=== PATIENT | male | born 1950 | race American Indian/Alaskan Native ===

== ENCOUNTER 2020-01-23 15:26 | Emergency (ER) | payer MEDICARE ==
[2020-01-23] MEDS ORDERED: LORazepam 1 MG TAB PO ONE (20:15)
--- NOTE | 2020-01-23 20:44 | XRay Report ---
CHEST 2 VIEWS INDICATION / CLINICAL INFORMATION: Weakness, trouble sleeping, flank pain. COMPARISON: None available. FINDINGS: SUPPORT DEVICES: None. HEART / MEDIASTINUM: No significant abnormality. LUNGS / PLEURA: No significant pulmonary or pleural abnormality. .No pneumothorax. ADDITIONAL FINDINGS: No significant additional findings. IMPRESSION: 1. No acute findings. Signer Name: Luis Enrique Ness MD Signed: 01/23/2020 8:39 PM Workstation Name: [id number]
[2020-01-23 20:53] LABS: Alanine Aminotransferase 42 units/L (7-56); Albumin 3.5 g/dL (3.9-5); Blood Urea Nitrogen 9 mg/dL (9-20); Hemolysis Index 11
[2020-01-23 20:54] LABS: Basophils % (Auto) 0.6 % (0.0-1.8); Eosinophils % (Auto) 0.8 % (0.0-4.3); Hematocrit 37.4 % (35.5-45.6); Hemoglobin 12.2 gm/dl (11.8-15.2); Lymphocytes # (Auto) 2.2 K/mm3 (1.2-5.4); Lymphocytes % (Auto) 38.9 % (13.4-35.0); Mean Corpuscular HGB Conc 33 % (32-34); Mean Corpuscular Volume 90 fl (84-94); Monocytes # (Auto) 0.8 K/mm3 (0.0-0.8); Monocytes % (Auto) 13.5 % (0.0-7.3); Platelet Count 218 K/mm3 (140-440); Red Blood Count 4.18 M/mm3 (3.65-5.03); Red Cell Distribution Width 15.7 % (13.2-15.2)
[2020-01-23 20:57] LABS: BUN/Creatinine Ratio 13
[2020-01-23] MEDS ORDERED: SODIUM CHLORIDE 0.9% 500 ML 500 ML IV ONE (21:09)
--- NOTE | 2020-01-23 21:16 | Emergency Department Report ---
ED General Adult HPI - General Chief complaint: Medical Clearance Stated complaint: NOT SLEEPING/BODY PAIN Time Seen by Provider: 01/23/20 20:03 Source: patient Mode of arrival: Ambulatory Limitations: No Limitations - History of Present Illness Initial comments: PT is a =69 y/o aam who presents for complaint of generalized bodyaches and insomnia, pt is currently being treated at [facility] for Dx. Hx ETOH Dependence, pt advises last etoh intake was 2 weeks ago. denies with drawals, is currently inpatient at [facility]. Pt denies tremor, no cp, no sob, no dizziness, no lighteheadedness , no n/v, no diaphoresis. [facility], is a/o x3 ambulatory with steady gait and nad. Onset/Timin -: week(s) Radiation: other (generalized bodyaches) Severity scale (0 -10): 3 Quality: aching Consistency: intermittent Improves with: none Worsens with: none Associated Symptoms: denies: confusion, chest pain, cough, diaphoresis, fever/chills, nausea/vomiting, shortness of breath, weakness Treatments Prior to Arrival: none - Related Data Allergies Allergy/AdvReac Type Severity Reaction Status Date / Time No Known Allergies Allergy Unverified 01/23/20 16:36 ED Review of Systems ROS: Stated complaint: NOT SLEEPING/BODY PAIN Other details as noted in HPI Constitutional: denies: chills, fever Eyes: as per HPI ENT: denies: ear pain, throat pain Respiratory: denies: cough, shortness of breath, wheezing Cardiovascular: denies: chest pain, palpitations Endocrine: no symptoms reported Gastrointestinal: denies: abdominal pain, nausea, diarrhea Genitourinary: denies: urgency, dysuria Musculoskeletal: arthralgia. denies: back pain, joint swelling Skin: denies: rash, lesions Neurological: denies: headache, weakness, paresthesias Psychiatric: denies: anxiety, depression Hematological/Lymphatic: denies: easy bleeding, easy bruising ED Past Medical Hx - Past Medical History Previous Medical History?: No - Surgical History Past Surgical History?: No ED Physical Exam - General Limitations: No Limitations General appearance: alert, in no apparent distress - Head Head exam: Present: atraumatic, normocephalic - Eye Eye exam: Present: normal appearance, PERRL, EOMI. Absent: nystagmus Pupils: Present: normal accommodation - ENT ENT exam: Present: mucous membranes moist - Neck Neck exam: Present: normal inspection, full ROM. Absent: tenderness, thyromegaly - Respiratory Respiratory exam: Present: normal lung sounds bilaterally. Absent: respiratory distress, wheezes, stridor, chest wall tenderness - Cardiovascular Cardiovascular Exam: Present: regular rate, normal rhythm, normal heart sounds. Absent: systolic murmur, diastolic murmur, rubs, gallop - GI/Abdominal GI/Abdominal exam: Present: soft, normal bowel sounds. Absent: distended, tenderness, guarding, rebound, rigid, organomegaly, bruit, hernia - Rectal Rectal exam: Present: deferred - Extremities Exam Extremities exam: Present: normal inspection, full ROM. Absent: tenderness, pedal edema - Back Exam Back exam: Present: normal inspection, full ROM. Absent: tenderness, CVA tenderness (R), CVA tenderness (L), vertebral tenderness, rash noted - Neurological Exam Neurological exam: Present: alert, oriented X3, CN II-XII intact, normal gait, reflexes normal. Absent: motor sensory deficit - Expanded Neurological Exam Expanded Patient oriented to: Present: person, place, time Speech: Present: fluid speech Motor strength exam: RUE: 5, LUE: 5, RLE: 5, LLE: 5 DTR: bicep (R): 2+, bicep (L): 2+, knee (R): 2+, knee (L): 2+ Best Eye Response ([place]): (4) open spontaneously Best Motor Response ([place]): (6) obeys commands Best Verbal Response ([place]): (5) oriented [place] Total: 15 - Psychiatric Psychiatric exam: Present: anxious. Absent: homicidal ideation, suicidal i deation - Skin Skin exam: Present: warm, dry, intact, normal color. Absent: rash ED Course Vital Signs 01/23/20 01/23/20 16:37 20:35 Temperature 98.8 F 99 F Pulse Rate 83 92 H Respiratory 18 18 Rate Blood Pressure 175/101 170/88 [Right] O2 Sat by Pulse 98 98 Oximetry ED Medical Decision Making - Lab Data Result diagrams: 01/23/20 20:17 01/23/20 20:17 - EKG Data EKG shows normal: sinus rhythm Rate: normal - EKG Data When compared to previous EKG there are: other (no previous ekg on file ) Interpretation: normal EKG Sinus Ry[place] probable left atrial englargement, no ST Elevation , ekg interp by ed attending. 01/23/20 22:26 - Radiology Data Radiology results: report reviewed, image reviewed Findings Reporting MD: Luis Enrique Ness Dictation Time: January 23, 2020 19:39 Intervention Teacher: Not available Development Professional Date: CHEST 2 VIEWS INDICATION / CLINICAL INFORMATION: Weakness, trouble sleeping, flank pain. COMPARISON: None available. FINDINGS: SUPPORT DEVICES: None. HEART / MEDIASTINUM: No significant abnormality. LUNGS / PLEURA: No significant pulmonary or pleural abnormality. .No pneumothorax. ADDITIONAL FINDINGS: No significant additional findings. IMPRESSION: 1. No acute findings. Signer Name: Luis Enrique Ness MD Signed: 01/23/2020 7:39 PM Workstation Name: [id number] - Medical Decision Making CXR no actue findings, no infiltrates no opacities, ekg: SR, no st elevated TX, probable left aytrial enlargement, AST: 65, ALT:55. lipase: 151, pt declines ivfs or iv, pt is tolerating po intake there is no neuro deficit, pt is alert oriented by 3, gait is steady , pt with nad. there is no SI, no HI, no tremor no dizziness no n/v, no symptoms symptoms of withdrawal noted at this time. pt will be dc'd to self at this time, pt will return to [facility] at this time. Critical care attestation.: If time is entered above; I have spent that time in minutes in the direct care of this critically ill patient, excluding procedure time. ED Disposition Clinical Impression: Generalized body aches, Medical clearance for psychiatric admission Disposition: DC-01 TO HOME OR SELFCARE Is pt being admited?: No Does the pt Need Aspirin: No Condition: Stable Instructions: Musculoskeletal Pain (ED), Insomnia (ED) Additional Instructions: Follow up with your doctor in 2-3 days. Referrals: JONATHAN TAY MD [Primary Care Provider] - 3-5 Days Forms: Work/School Release Form(ED) Time of Disposition: 21:24
[2020-01-24 00:10] VITALS: BP 165/80
== END 2020-01-24 01:00 | disposition home or self-care (01) ==
LOC: ED 15:26
DX: M79.10 Myalgia, unspecified site (principal); G47.00 Insomnia, unspecified; Z04.6 Encounter for general psychiatric examination, requested by authority
CPT/HCPCS: 36415; 71046; 80053; 83690; 84484; 85025; 93005